=== PATIENT | female | born 2000 | race African-American/Black ===

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

== ENCOUNTER 2021-12-03 11:24 | Emergency (ER) | payer MEDICARE, MEDICAID ==
[~2021-12-03] VITALS: Wt 22.9 kg
[~2021-12-03 11:24] MED LIST: DIFLUCAN200 MG PO; KEPPRA SUSP100 MG/ML PEG; LEADER CLE17 GM/Dose PO; ROBINUL1 MG PO; ZONEGRAN50 MG PO
[2021-12-03 11:25] VITALS: TEMP 96.9
[2021-12-03 13:36] LABS: BASO % 0.2 % (0.0-2.0); EOS # 0.1 K/mm3 (0.0-0.7); EOS % 1.3 % (0.0-4.0); GRAN # 3.3 K/mm3 (1.4-6.5); GRAN % 53.9 % (42.2-75.2); LYMPH # 2.1 K/mm3 (1.2-3.4); LYMPH % 34.2 % (20.0-51.0); MEAN CELL VOLUME 90 fl (80.0-100.0); MEAN CORPUSCULAR HGB CONC 31 g/dl (33.0-37.0); MEAN PLATELET VOLUME 10.4 fl (7.4-10.4); MONO # 0.6 K/mm3 (0.1-0.6); MONO % 9.9 % (1.7-9.3); PLATELET COUNT 544 K/mm3 (130-400); RED BLOOD COUNT 1.09 M/mm3 (4.10-5.30); REDCELL DISTRIBUTION WIDTH-CV 15.3 % (11.5-14.5)
[2021-12-03 13:38] LABS: ALBUMIN 3.1 gm/dL (3.5-5.0); BILIRUBIN,TOTAL 0.2 mg/dL (0.2-1.2); CREATININE, serum 0.91 mg/dL (0.57-1.11); POTASSIUM 4.8 mmol/L (3.5-4.5)
[2021-12-03 13:42] LABS: HEMATOCRIT 9.8 % (37.0-47.0); MEAN CORPUSCULAR HEMOGLOBIN 28 pg (27-31)
[2021-12-03 15:13] LABS: BASO % 0.2 % (0.0-2.0); GRAN # 2.8 K/mm3 (1.4-6.5); GRAN % 68.8 % (42.2-75.2); HEMATOCRIT 28.5 % (37.0-47.0); HEMOGLOBIN 8.9 g/dl (12.5-16.0); LYMPH # 0.8 K/mm3 (1.2-3.4); MEAN CELL VOLUME 89 fl (80.0-100.0); MEAN CORPUSCULAR HEMOGLOBIN 28 pg (27-31); MEAN CORPUSCULAR HGB CONC 31 g/dl (33.0-37.0); MEAN PLATELET VOLUME 9.9 fl (7.4-10.4); MONO # 0.4 K/mm3 (0.1-0.6); MONO % 9.8 % (1.7-9.3); PLATELET COUNT 305 K/mm3 (130-400); RED BLOOD COUNT 3.21 M/mm3 (4.10-5.30); REDCELL DISTRIBUTION WIDTH-CV 15.2 % (11.5-14.5)
[2021-12-03] MEDS ORDERED: AZITHROMYC200 MG/5 M PO (15:43)
[2021-12-03 17:09] VITALS: BP 110/76; PULSE 55
== END 2021-12-03 17:11 | disposition home or self-care (01) ==
LOC: COL.ER 11:24
PROVIDERS: Personal Emergency Response Attendant
DX: J40 Bronchitis, not specified as acute or chronic (principal); Z88.1 Allergy status to other antibiotic agents; Z20.822 Contact with and (suspected) exposure to COVID-19
CPT/HCPCS: C1751; J1956; J7030